=== PATIENT | female | born 1995 | race Caucasian/White ===

== ENCOUNTER 2020-12-21 11:50 | Emergency (ER) | payer SELFPAY ==
[~2020-12-21] VITALS: Wt 117.0 kg
[~2020-12-21 11:50] MED LIST: BIRTH CONTROL1 EAC1 PO; MOTRIN800 MG PO; Motrin,Rufen800 MG PO; Ondansetron4 MG PO; PRENATAL1 TA2 PO
[2020-12-21 12:33] LABS: BILIRUBIN Negative (Negative); BLOOD Negative (Negative); CLARITY Cloudy (Clear); COLOR Yellow (Yellow); GLUCOSE Negative (Negative); KETONE Negative (Negative); LEUKO ESTERASE 3+ (Negative); NITRITE Negative (Negative); SPECIFIC GRAVITY <= 1.005 (1.001-1.030); UROBILINOGEN 0.2 E.U./dl (0.0-1.0)
[2020-12-21 12:48] LABS: BACTERIA 1+; RBC 16-20 rbc/hpf (0-2)
[2020-12-21 13:14] LABS: BASO % 0.4 % (0.0-1.0); EOS # 0.1 10*3/uL (0.0-0.4); EOS % 1.1 % (1.0-4.0); HEMATOCRIT 41.1 % (37.0-47.0); LYMPH % 28.7 % (27.0-41.0); MEAN CELL VOLUME 91.5 fl (81.0-99.0); MEAN CORPUSCULAR HGB 29.8 pg (27.0-31.0); MEAN CORPUSCULAR HGB CONC 32.6 g/dl (33.0-37.0); MEAN PLATELET VOLUME 9.8 fl (9.6-12.3); MONO # 0.6 10*3/uL (0.1-1.0); MONO % 7.8 % (3.0-9.0); NEUT # 4.3 10*3/uL (2.3-7.9); NEUT % 61.9 % (47.0-73.0); PLATELET COUNT AUTOMATED 246 10*3/uL (130-400); RED BLOOD COUNT 4.49 10*6/uL (4.10-5.10); RED CELL DISTRI WIDTH 12.4 % (0-14.5)
[2020-12-21 13:40] LABS: ALKALINE PHOSPHATASE 53 U/L (45-117); BETA-HCG, QUANT < 1.0 mIU/mL (1-3); BUN 9 mg/dl (7-24); CHLORIDE 110 mmol/L (98-107); CREATININE 0.71 mg/dL (0.55-1.02); LIPASE 197 U/L (73-393); POTASSIUM 3.7 mmol/L (3.5-5.1); SGOT/AST 9 IU/L (3-35); SGPT/ALT 23 U/L (12-78); SODIUM 141 mmol/L (136-145); TOTAL PROTEIN 7.5 gm/dL (6.4-8.2)
[2020-12-21] MEDS ORDERED: PHENERGAN25 M3 PO (14:19)
[2020-12-21] MEDS ORDERED: CIPRO500 MG PO (14:19)
== END 2020-12-21 14:32 | disposition home or self-care (01) ==
LOC: ED 11:50
PROVIDERS: Emergency Medicine
DX: N39.0 Urinary tract infection, site not specified (principal); N94.6 Dysmenorrhea, unspecified; Z91.040 Latex allergy status

== ENCOUNTER → 2021-01-06 | Outpatient (CLI) | payer SELFPAY ==
[~2021-01-06] MED LIST changes: +CIPRO500 MG PO; +PHENERGAN25 M3 PO
== END | disposition home or self-care (01) ==
LOC: COVID19 10:17
PROVIDERS: ATTEND Internal Medicine
DX: U07.1 COVID-19 (principal)

== ENCOUNTER 2024-07-20 16:42 | Emergency (ER) | payer SELFPAY ==
[~2024-07-20] VITALS: Ht 187.9 cm; Wt 117.9 kg
[2024-07-20] MEDS ORDERED: Ondansetron Hydrochloride 4 MG/2 ML VIAL IV ONE (17:05)
[2024-07-20] MEDS ORDERED: MORPHINE Sulfate 2 MG/ML SYR IV ONE (17:05)
[2024-07-20 17:32] LABS: BASO % 0.4 % (0.0-1.0); EOS # 0.1 10*3/uL (0.0-0.4); EOS % 1.4 % (1.0-4.0); HEMATOCRIT 37.2 % (37.0-47.0); MEAN CELL VOLUME 90.3 fl (81.0-99.0); MEAN CORPUSCULAR HGB 30.1 pg (27.0-31.0); MEAN CORPUSCULAR HGB CONC 33.3 g/dl (33.0-37.0); MEAN PLATELET VOLUME 9.5 fl (9.6-12.3); MONO # 0.7 10*3/uL (0.1-1.0); MONO % 7.3 % (3.0-9.0); NEUT # 5.5 10*3/uL (2.3-7.9); NEUT % 58.7 % (47.0-73.0); PLATELET COUNT AUTOMATED 323 10*3/uL (130-400); RED BLOOD COUNT 4.12 10*6/uL (4.10-5.10); WHITE BLOOD COUNT 9.3 10*3/uL (4.8-10.8)
[2024-07-20 18:18] LABS: ALKALINE PHOSPHATASE 57 U/L (46-116); BUN 15 mg/dl (9-23); CHLORIDE 107 mmol/L (98-107); LIPASE 70 U/L (12-53); POTASSIUM 3.7 mmol/L (3.4-5.1); SGPT/ALT 24 U/L (5-49); TOTAL PROTEIN 6.9 gm/dL (6.0-8.0)
[2024-07-20 18:21] LABS: BETA-HCG, QUANT < 3.0 mIU/mL (3-10)
[2024-07-20 18:23] LABS: BILIRUBIN Negative (Negative); BLOOD Negative (Negative); CLARITY Clear (Clear); COLOR Yellow (Yellow); GLUCOSE Negative (Negative); KETONE Negative (Negative); LEUKO ESTERASE Trace (Negative); NITRITE Negative (Negative); PH 5.5 (4.5-8.0); UROBILINOGEN 0.2 E.U./dl (0.0-1.0)
[2024-07-20 18:51] LABS: RBC 0-2 rbc/hpf (0-2)
[2024-07-20] MEDS ORDERED: MELOXICAM15 MG PO (20:54)
== END 2024-07-20 21:11 | disposition home or self-care (01) ==
LOC: ED 16:42
PROVIDERS: Internal Medicine
DX: K82.9 Disease of gallbladder, unspecified (principal); R10.2 Pelvic and perineal pain; Z91.040 Latex allergy status; Z79.899 Other long term (current) drug therapy

== ENCOUNTER 2024-12-07 16:32 | Emergency (ER) | payer OTHER ==
[~2024-12-07] VITALS: Ht 177.8 cm; Wt 90.7 kg
[~2024-12-07 16:32] MED LIST changes: +MELOXICAM15 MG PO
[2024-12-07] MEDS ORDERED: PANTOPRAZOLE SO40 MG PO (16:49)
[2024-12-07] MEDS ORDERED: STOOL SOFTENER100 M3 PO (16:50)
[2024-12-07 16:58] LABS: BILIRUBIN Negative (Negative); BLOOD Negative (Negative); CLARITY Clear (Clear); COLOR Yellow (Yellow); GLUCOSE Negative (Negative); KETONE Negative (Negative); LEUKO ESTERASE 1+ (Negative); NITRITE Negative (Negative); PH 6.5 (4.5-8.0); SPECIFIC GRAVITY <= 1.005 (1.001-1.030); UROBILINOGEN 0.2 E.U./dl (0.0-1.0)
[2024-12-07 17:11] LABS: BACTERIA 1+
[2024-12-07] MEDS ORDERED: SEPTDS PO (17:16)
[2024-12-07] MEDS ORDERED: Sulfamethoxazole/Trimethopri 1 TAB TAB PO ONE (17:20)
== END 2024-12-07 17:35 | disposition home or self-care (01) ==
LOC: ED 16:32
PROVIDERS: Physician Assistant Medical
DX: N39.0 Urinary tract infection, site not specified (principal); Z91.040 Latex allergy status